=== PATIENT | female | born 1955 | race Caucasian/White ===

== ENCOUNTER 2017-06-23 19:32 | Inpatient (IN) | payer MEDICARE, BC ==
[2017-06-23] MEDS ORDERED: Sodium Chloride 0.9% 10 ML Syringe FLUSH PRN (19:39)
--- NOTE | 2017-06-23 19:51 | EDM.PDOC ---
ED HPI GENERAL MEDICAL PROBLEM - General Chief Complaint: Respiratory Problem Stated Complaint: SOB; fluid retention Time Seen by Provider: 06/23/17 19:36 Source of Information: Reports: Patient, Old Records, RN, RN Notes Reviewed History Limitations: Reports: No Limitations - History of Present Illness INITIAL COMMENTS - FREE TEXT/NARRATIVE: Patient presents to the ED at [facility] complaining of worsening SOB and fluid retention. She states her symptoms started a few days ago. She states she has chronic SOB from her weight and small body habitus. She has noticed considerable fluid retention in her lower legs and upper thighs. Patient states she was going to wait to come in and just call her PCP tomorrow, but her SOB has become much worse. She is taking her diuretics as prescribed. She states she has not been drinking more fluids than usual. She has been busy with family obligations. She has chronic pain from her weight, joints. She is on a pain contract thru [facility]. She denies any cough. No chest pain. She states her ambulation is difficult due to the fluid retention. No recent fevers or chills. She has chronic abdominal pain from a ventral hernia that she has had for many years. Onset: Gradual Duration: Chronic Location: Reports: Generalized Quality: Reports: Ache, Same as Previous Episode Severity: Moderate Improves with: Reports: Medication Worsens with: Reports: Movement Associated Symptoms: Reports: Shortness of Breath, Other (fluid retention) Abdominal Pain Score (Numeric/FACES): 7 - Related Data Allergies Allergy/AdvReac Type Severity Reaction Status Date / Time Lpuormj-Afy-Pdl Reductase AdvReac Other Verified 06/23/17 19:42 Inhibitor Home Meds: Home Meds Acetaminophen/HYDROcodone [Vista 325-10 MG] 1 - 2 tab PO Q4H PRN 11/17/15 [ History] Aspirin [Halfprin] 81 mg PO DAILY 11/17/15 [History] Calcium Carbonate/Vitamin D3 [Calcium 600 + Vit D Tablet] 1 tab PO DAILY [History] Citalopram Hydrobromide [Citalopram HBr] 20 mg PO DAILY 11/17/15 [History] Cyanocobalamin/FA/Pyridoxine [Folbic] 1 tab PO DAILY 11/17/15 [History] Cyclobenzaprine HCl 10 mg PO TID PRN 11/17/15 [History] Denosumab [Prolia] 60 mg SUBCUT Q180D 11/17/15 [History] Ferrous Sulfate 5 ml PO TID 11/17/15 [History] Fish Oil/[place]-3 Fatty Acids [Fish Oil] 360 mg PO DAILY 11/17/15 [History] Furosemide 40 mg PO DAILY 11/17/15 [History] Insulin Detemir [Levemir Flextouch] 60 unit SUBCUT DAILY 11/17/15 [History] Insulin Detemir [Levemir Flextouch] 61 unit SUBCUT BEDTIME 11/17/15 [History] Lutein/Min/Vit C/Vit E Acetate [Ocuvite Lutein] 1 tab PO DAILY 11/17/15 [History ] Metoprolol Succinate 25 mg PO DAILY 11/17/15 [History] Multivitamin with Minerals [Multiple Vitamin] 1 tab PO DAILY 11/17/15 [History] Potassium Chloride [Klor-Con Sprinkle] 10 meq PO DAILY 11/17/15 [History] Warfarin Sodium 5 mg PO DAILY 11/17/15 [History] Zolpidem Tartrate 5 mg PO BEDTIME 11/17/15 [History] metFORMIN [Glucophage] 1,000 mg PO BID 11/17/15 [History] Past Medical History Other HEENT History: OROPHARYNGEAL DYSPHAGIA Cardiovascular History: Reports: Arrhythmia, Hypertension Other Cardiovascular History: PERSISTENT ATRIAL FIB. PRISON USE OF ANTICOAGULANTS Other Gastrointestinal History: GALL STONES. BLOOD IN STOOL Genitourinary History: Reports: Renal Disease Musculoskeletal History: Reports: Neck Pain, Chronic, Osteoporosis Other Musculoskeletal History: LOCALIZED SWELLING, MASS AND LUMP, NECK. 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 Denies: Fever, Chills, Night Sweats , Diaphoresis Respiratory: Reports: Shortness of Breath. Denies: Wheezing, Cough, Sputum Cardiovascular: Reports: Dyspnea on Exertion, Edema, Orthopnea. Denies: Chest Pain, Lightheadedness, Palpitations GI/Abdominal: Reports: Abdominal Pain (chronic). Denies: Nausea, Vomiting Skin: Reports: Wound (chronic lower abdominal wound being cared for by [facility] wound clinic) Neurological: Reports: No Symptoms. Denies: Dizziness, Headache ED EXAM, GENERAL - Physical Exam Exam: See Below Exam Limited By: No Limitations General Appearance: Alert, No Apparent Distress, Obese Respiratory/Chest: No Respiratory Distress, Decreased Breath Sounds. No: Crackles, Wheezing Cardiovascular: Irregularly Irregular, Other (+3 bilateral LE edema; healing venous statis ulcer lower anterior left leg) Peripheral Pulses: 2+: Radial (L), Radial (R) GI/Abdominal: Soft, Non-Tender, Abnormal Bowel Sounds (Hypoactive), Other ( large ventral hernia appreciated) Extremities: Pedal Edema (+3 dependent pitting lower leg bilateral) Neurological: Alert, Oriented Skin Exam: Warm, Dry, Normal Color, Other (wound dressing over central lower abdomen) Course - Vital Signs Last Recorded V/S: Last Vital Signs Temp 37.7 C 06/23/17 19:36 Pulse 109 H 06/23/17 19:36 Resp 24 H 06/23/17 19:36 BP 145/82 H 06/23/17 19:36 Pulse Ox 95 06/23/17 19:36 - Orders/Labs/Meds Orders: Active Orders 24 hr Category Date Time Status Admission Status [Patient Status] [ADT] Routine ADT 06/23/17 21:04 Ordered EKG 12 Lead [EKG Documentation Completion] [RC] STAT Care 06/23/17 19:39 Active Chest 1V Frontal [CR] Stat Exams 06/23/17 19:39 Taken Sodium Chloride 0.9% [Saline Flush] Med 06/23/17 19:39 Active 10 ml FLUSH ASDIRECTED PRN Peripheral IV Insertion Adult [OM.PC] Routine Oth 06/23/17 19:39 Ordered Medication Orders Sodium Chloride (Saline Flush) 10 ml FLUSH ASDIRECTED PRN PRN Reason: Keep Vein Open Labs: Laboratory Tests 06/23/17 06/23/17 06/23/17 Range/Units 20:04 20:04 20:04 WBC 4.7 (4.0-10.0) x10^3/uL RBC 3.40 L (4.00-5.50) x10^6/uL Hgb 7.6 L* (12.0-16.0) g/dL Hct 27.1 L (33.0-47.0) % MCV 79.7 D (78.0-93.0) fL MCH 22.4 L (26.0-32.0) pg MCHC 28.0 L (32.0-36.0) g/dL RDW Coeff of Vahid 17.5 H (10.0-15.0) % Plt Count 199 (130-400) x10^3/uL Neut % (Auto) 66.4 (50.0-80.0) % Lymph % (Auto) 21.4 L (25.0-50.0) % Stokes % (Auto) 9.5 (2.0-11.0) % Eos % (Auto) 2.5 (0.0-4.0) % Baso % (Auto) 0.2 (0.2-1.2) % PT (9.6-11.4) SEC INR (2.0-3.5) D-Dimer, Quantitative (<=0.58) mg/LFEU Sodium 139 (136-145) mmol/L Potassium 4.4 (3.5-5.1) mmol/L Chloride 105 (98-107) mmol/L Carbon Dioxide 27 (21-32) mmol/L Anion Gap 11.4 (10-20) mmol/L BUN 21 H (7-18) mg/dL Creatinine 0.9 (0.55-1.02) mg/dL Est Cr Clr Drug Dosing 57.40 mL/min Estimated GFR (MDRD) > 60 Glucose 223 H (74-106) mg/dL Calcium 8.3 L (8.5-10.1) mg/dL Corrected Calcium 9.18 (8.5-10.1) mg/dL Iron 19 L (50-170) ug/dL TIBC 387 (250-450) ug/dL % Saturation 4.9 L (20.0-50.0) % Ferritin 20 (8-252) ng/mL Total Bilirubin 0.8 (0.2-1.0) mg/dL AST 26 (15-37) U/L ALT 26 (14-59) U/L Alkaline Phosphatase 108 (46-116) U/L Creatine Kinase 46 (26-192) U/L Troponin I < 0.017 (<=0.056) ng/mL NT-Pro-B Natriuret Pep 1274 H (<=125) pg/mL Total Protein 7.7 (6.4-8.2) g/dL Albumin 2.9 L (3.4-5.0) g/dL Globulin 4.8 Albumin/Globulin Ratio 0.60 /08/05 Range/Units 20:04 WBC (4.0-10.0) x10^3/uL RBC (4.00-5.50) x10^6/uL Hgb (12.0-16.0) g/dL Hct (33.0-47.0) % MCV (78.0-93.0) fL MCH (26.0-32.0) pg MCHC (32.0-36.0) g/dL RDW Coeff of Vahid (10.0-15.0) % Plt Count (130-400) x10^3/uL Neut % (Auto) (50.0-80.0) % Lymph % (Auto) (25.0-50.0) % Stokes % (Auto) (2.0-11.0) % Eos % (Auto) (0.0-4.0) % Baso % (Auto) (0.2-1.2) % PT 26.2 H (9.6-11.4) SEC INR 2.5 (2.0-3.5) D-Dimer, Quantitative 0.29 (<=0.58) mg/LFEU Sodium (136-145) mmol/L Potassium (3.5-5.1) mmol/L Chloride (98-107) mmol/L Carbon Dioxide (21-32) mmol/L Anion Gap (10-20) mmol/L BUN (7-18) mg/dL Creatinine (0.55-1.02) mg/dL Est Cr Clr Drug Dosing mL/min Estimated GFR (MDRD) Glucose (74-106) mg/dL Calcium (8.5-10.1) mg/dL Corrected Calcium (8.5-10.1) mg/dL Iron (50-170) ug/dL TIBC (250-450) ug/dL % Saturation (20.0-50.0) % Ferritin (8-252) ng/mL Total Bilirubin (0.2-1.0) mg/dL AST (15-37) U/L ALT (14-59) U/L Alkaline Phosphatase (46-116) U/L Creatine Kinase (26-192) U/L Troponin I (<=0.056) ng/mL NT-Pro-B Natriuret Pep (<=125) pg/mL Total Protein (6.4-8.2) g/dL Albumin (3.4-5.0) g/dL Globulin Albumin/Globulin Ratio Meds: Medications Generic Name Dose Route Start Last Admin Trade Name Freq PRN Reason Stop Dose Admin Sodium Chloride 10 ml 06/23/17 19:39 Saline Flush FLUSH ASDIRECTED PRN Keep Vein Open Departure - Departure Time of Disposition: 21:09 Disposition: Admitted As Inpatient 67 Condition: Good Clinical Impression: Low hemoglobin, Shortness of breath, Fluid retention in legs - Discharge Information ED Communication - ED Communication Date/Time Date: 06/23/17 Time Called: 20:55 - Discussed Case With (1) Discussed Case With (1): Admitting Provider (Dr. Quinn Somers) - Conversation Summary Admitting Provider Agreed to Patient's Admission: Yes Patient Aware of Amendments fo Care Plan: Yes - Problem List Review Problem List Initiated/Reviewed/Updated: Yes - My Orders Last 24 Hours: My Active Orders 06/23/17 19:39 EKG 12 Lead [EKG Documentation Completion] [RC] STAT Chest 1V Frontal [CR] Stat Sodium Chloride 0.9% [Saline Flush] 10 ml FLUSH ASDIRECTED PRN Peripheral IV Insertion Adult [OM.PC] Routine 06/23/17 21:04 Admission Status [Patient Status] [ADT] Routine - Assessment/Plan Last 24 Hours: My Active Orders 06/23/17 19:39 EKG 12 Lead [EKG Documentation Completion] [RC] STAT Chest 1V Frontal [CR] Stat Sodium Chloride 0.9% [Saline Flush] 10 ml FLUSH ASDIRECTED PRN Peripheral IV Insertion Adult [OM.PC] Routine 06/23/17 21:04 Admission Status [Patient Status] [ADT] Routine Plan: Case discussed with Dr. Somers. Patient will be admitted acute for iron infusion and diuresis. Patient aware and agrees with admission.
[2017-06-23 20:38] LABS: CHLORIDE,CL 105 mmol/L (98-107); SODIUM,NA 139 mmol/L (136-145)
[2017-06-23] MEDS: Furosemide 20 MG/2 ML VIAL IV SCH (23:38)
--- NOTE | 2017-06-23 23:47 | PCM.HP ---
H&P History of Present Illness - General Date of Service: 06/23/17 Admit Problem/Dx: Admission Diagnosis/Problem Admission Diagnosis/Problem Shortness of breath Source of Information: Patient - History of Present Illness Initial Comments - Free Text/Narative: Chief Complaint: shortness of breath Patient has been having gradual increasing shortness of breath over the last 2 months. She is okay at rest but with any movement she is dyspneic she states that this is a problem whenever her hemoglobin gets low she also has a history of congestive heart failure. Her weight has gone up 20-30 pounds over the last month or so. Patient has had no chest pain, chest pressure, fast heartbeat. She also has a history of sleep apnea but does not use her CPAP consistently. Patient is morbidly obese. She has a history of iron deficiency anemia. 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 Patient last saw Dr. Parish in April and at that point her hemoglobin was 10.4. Patient does not take her iron 3 times a day daily as prescribed but twice a day every other day. Patient states she's had a colonoscopy and EGD which were both negative within the last year patient Abdominal Pain Score (Numeric/FACES): 7 - Related Data Allergies/Adverse Reactions: Allergies Allergy/AdvReac Type Severity Reaction Status Date / Time [id number] Reductase AdvReac Other Verified 06/23/17 19:42 Inhibitor Home Medications: Home Meds Acetaminophen/HYDROcodone [Delta 325-10 MG] 1 - 2 tab PO Q4H PRN 11/17/15 [ History] Aspirin [Halfprin] 81 mg PO DAILY 11/17/15 [History] Calcium Carbonate/Vitamin D3 [Calcium 600 + Vit D Tablet] 1 tab PO DAILY [History] Citalopram Hydrobromide [Citalopram HBr] 20 mg PO DAILY 11/17/15 [History] Cyanocobalamin/FA/Pyridoxine [Folbic] 1 tab PO DAILY 11/17/15 [History] Cyclobenzaprine HCl 10 mg PO TID PRN 11/17/15 [History] Denosumab [Prolia] 60 mg SUBCUT Q180D 11/17/15 [History] Ferrous Sulfate 5 ml PO TID 11/17/15 [History] Fish Oil/[place]-3 Fatty Acids [Fish Oil] 360 mg PO DAILY 11/17/15 [History] Furosemide 40 mg PO DAILY 11/17/15 [History] Insulin Detemir [Levemir Flextouch] 60 unit SUBCUT DAILY 11/17/15 [History] Insulin Detemir [Levemir Flextouch] 61 unit SUBCUT BEDTIME 11/17/15 [History] Lutein/Min/Vit C/Vit E Acetate [Ocuvite Lutein] 1 tab PO DAILY 11/17/15 [History ] Metoprolol Succinate 25 mg PO DAILY 11/17/15 [History] Multivitamin with Minerals [Multiple Vitamin] 1 tab PO DAILY 11/17/15 [History] Potassium Chloride [Klor-Con Sprinkle] 10 meq PO DAILY 11/17/15 [History] Warfarin Sodium 5 mg PO DAILY 11/17/15 [History] Zolpidem Tartrate 5 mg PO BEDTIME 11/17/15 [History] metFORMIN [Glucophage] 1,000 mg PO BID 11/17/15 [History] Ferrous Sulfate 5 ml PO TID 06/23/17 [History] Warfarin [Coumadin] 1 mg PO DAILY 06/23/17 [History] Past Medical History HEENT History: Reports: Other (See Below) (Patient states she has had a video swallow test which was negative she continues to have problems side of her) Other HEENT History: OROPHARYNGEAL DYSPHAGIA Cardiovascular History: Reports: Arrhythmia, Hypertension Other Cardiovascular History: PERSISTENT ATRIAL FIB. LONG-TERM USE OF ANTICOAGULANTS Respiratory History: Reports: Sleep Apnea, SOB Other Respiratory History: using CPAP at home Other Gastrointestinal History: GALL STONES Genitourinary History: Reports: Renal Disease Musculoskeletal History: Reports: Neck Pain, Chronic, Osteoporosis Other Musculoskeletal History: LOCALIZED SWELLING, MASS AND LUMP, NECK. DISORDER OF ROTATOR CUFF. Back pain for which she uses 4-6 pills of her hydrocodone\ acetaminophen daily and she is in a pain contract with her PCP Other Neuro History: CHRONIC PAIN SYNDROME Psychiatric History: Reports: Depression Other Psychiatric History: INSOMNIA Endocrine/Metabolic History: Reports: Diabetes, Type II Hematologic History: Reports: Anemia, Iron Deficiency Other Dermatologic History: OPEN SORE WHERE UMBILLICUS USED TO BE - Past Surgical History Cardiovascular Surgical History: Reports: None GI Surgical History: Reports: Appendectomy, Colonoscopy, EGD, Hernia, Abdominal , Hernia Repair/Other, Other (See Below) (Failed hernia repair with infected mesh removed 2006) Other GI Surgeries/Procedures: GASTRIC BYPASS Musculoskeletal Surgical History: Reports: None Social & Family History - Family History Other GI Family History: FAM HX COLON CANCER - Tobacco Use Smoking Status *Q: Never Smoker Used Tobacco, but Quit: No Tobacco Use Comment: never been a smoker Second Hand Smoke Exposure: No - Caffeine Use Caffeine Use: Reports: Coffee - Alcohol Use Alcohol Use History: No - Recreational Drug Use Recreational Drug Use: No - Living Situation & Occupation Occupation: Disabled (Former health aide, lives with , 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 One daughter is in [place] She has an adopted son) H&P Review of Systems - Review of Systems: Review Of Systems: See Below General: Reports: Fatigue, Weight Gain HEENT: Reports: Other (Feeling of pain and difficulty swallowing on the left neck) Pulmonary: Reports: Shortness of Breath Cardiovascular: Reports: Edema Gastrointestinal: Reports: No Symptoms Genitourinary: Reports: No Symptoms Musculoskeletal: Reports: Back Pain, Other (Back pain gets worse because of the weight of her abdominal pannus, also has periodic pain in her rib cage) Skin: Reports: Other (Chronic erythema in her lower legs) Psychiatric: Reports: Other (Under a lot of stress) Neurological: Reports: No Symptoms Exam - Exam Exam: See Below - Vital Signs Vital Signs: Last Vital Signs Temp 98 F 06/23/17 23:14 Pulse 108 H 06/23/17 23:14 Resp 18 06/23/17 23:14 BP 123/61 06/23/17 23:14 Pulse Ox 94 L 06/23/17 23:14 Weight: 343 lb - Exam General: Alert, Oriented, Other (Dyspneic at rest and activity) HEENT: Conjunctiva Clear, Hearing Intact Neck: Supple, +2 Carotid Pulse wo Bruit Lungs: Clear to Auscultation Cardiovascular: Normal S1, Normal S2, Irregular Rhythm GI/Abdominal Exam: Normal Bowel Sounds, Other (Large abdominal pannus., Hold dressing covers from wound was not taken down as we don't have any suitable dressing. Hospital) Back Exam: Normal Inspection Extremities: Redness, Other (Patient has 3+ bilateral edema, erythema which patient says is chronic, healing superficial scrape on the right anterior tibial surface) Neuro Extensive - Mental Status: Alert, Oriented x3, Normal Mood/Affect, Normal Cognition, Memory Intact Neuro Extensive - Motor, Sensory, Reflexes: CN II-XII Intact, Normal Gait Psychiatric: Alert, Normal Affect, Normal Mood - Patient Data Lab Results Last 24 hrs: Laboratory Results - last 24 hr 06/23/17 06/23/17 06/23/17 Range/Units 20:04 20:04 20:04 WBC 4.7 (4.0-10.0) x10^3/uL RBC 3.40 L (4.00-5.50) x10^6/uL Hgb 7.6 L* (12.0-16.0) g/dL Hct 27.1 L (33.0-47.0) % MCV 79.7 D (78.0-93.0) fL MCH 22.4 L (26.0-32.0) pg MCHC 28.0 L (32.0-36.0) g/dL RDW Coeff of Vahid 17.5 H (10.0-15.0) % Plt Count 199 (130-400) x10^3/uL Neut % (Auto) 66.4 (50.0-80.0) % Lymph % (Auto) 21.4 L (25.0-50.0) % [place] % (Auto) 9.5 (2.0-11.0) % Eos % (Auto) 2.5 (0.0-4.0) % Baso % (Auto) 0.2 (0.2-1.2) % PT (9.6-11.4) SEC INR (2.0-3.5) D-Dimer, Quantitative (<=0.58) mg/LFEU Sodium 139 (136-145) mmol/L Potassium 4.4 (3.5-5.1) mmol/L Chloride 105 (98-107) mmol/L Carbon Dioxide 27 (21-32) mmol/L Anion Gap 11.4 (10-20) mmol/L BUN 21 H (7-18) mg/dL Creatinine 0.9 (0.55-1.02) mg/dL Est Cr Clr Drug Dosing 57.40 mL/min Estimated GFR (MDRD) > 60 Glucose 223 H (74-106) mg/dL POC Glucose (74-106) mg/dL Calcium 8.3 L (8.5-10.1) mg/dL Corrected Calcium 9.18 (8.5-10.1) mg/dL Iron 19 L (50-170) ug/dL TIBC 387 (250-450) ug/dL % Saturation 4.9 L (20.0-50.0) % Ferritin 20 (8-252) ng/mL Total Bilirubin 0.8 (0.2-1.0) mg/dL AST 26 (15-37) U/L ALT 26 (14-59) U/L Alkaline Phosphatase 108 (46-116) U/L Creatine Kinase 46 (26-192) U/L Troponin I < 0.017 (<=0.056) ng/mL NT-Pro-B Natriuret Pep 1274 H (<=125) pg/mL Total Protein 7.7 (6.4-8.2) g/dL Albumin 2.9 L (3.4-5.0) g/dL Globulin 4.8 Albumin/Globulin Ratio 0.60 06/23/17 06/23/17 Range/Units 20:04 22:13 WBC (4.0-10.0) x10^3/uL RBC (4.00-5.50) x10^6/uL Hgb (12.0-16.0) g/dL Hct (33.0-47.0) % MCV (78.0-93.0) fL MCH (26.0-32.0) pg MCHC (32.0-36.0) g/dL RDW Coeff of Vahid (10.0-15.0) % Plt Count (130-400) x10^3/uL Neut % (Auto) (50.0-80.0) % Lymph % (Auto) (25.0-50.0) % [place] % (Auto) (2.0-11.0) % Eos % (Auto) (0.0-4.0) % Baso % (Auto) (0.2-1.2) % PT 26.2 H (9.6-11.4) SEC INR 2.5 (2.0-3.5) D-Dimer, Quantitative 0.29 (<=0.58) mg/LFEU Sodium (136-145) mmol/L Potassium (3.5-5.1) mmol/L Chloride (98-107) mmol/L Carbon Dioxide (21-32) mmol/L Anion Gap (10-20) mmol/L BUN (7-18) mg/dL Creatinine (0.55-1.02) mg/dL Est Cr Clr Drug Dosing mL/min Estimated GFR (MDRD) Glucose (74-106) mg/dL POC Glucose 149 H (74-106) mg/dL Calcium (8.5-10.1) mg/dL Corrected Calcium (8.5-10.1) mg/dL Iron (50-170) ug/dL TIBC (250-450) ug/dL % Saturation (20.0-50.0) % Ferritin (8-252) ng/mL Total Bilirubin (0.2-1.0) mg/dL AST (15-37) U/L ALT (14-59) U/L Alkaline Phosphatase (46-116) U/L Creatine Kinase (26-192) U/L Troponin I (<=0.056) ng/mL NT-Pro-B Natriuret Pep (<=125) pg/mL Total Protein (6.4-8.2) g/dL Albumin (3.4-5.0) g/dL Globulin Albumin/Globulin Ratio Result Diagrams: 06/23/17 20:04 06/23/17 20:04 EKG INTERPRETATION Rhythm: A-Fib [place]: Normal (Atrial fibrillation heart rate [address] sagging and T- wave inversion 1, 2, 3,v4, 5, 6) - Problem List (1) Fluid retention in legs SNOMED Code(s): 521950565 ICD Code: R60.0 - LOCALIZED EDEMA Status: Acute Priority: High Current Visit: Yes (2) Low hemoglobin SNOMED Code(s): 317697207 ICD Code: D64.9 - ANEMIA, UNSPECIFIED Status: Acute Current Visit: Yes (3) Anemia in CKD (chronic kidney disease) SNOMED Code(s): 648113513 ICD Code: N18.9 - CHRONIC KIDNEY DISEASE, UNSPECIFIED; D63.1 - ANEMIA IN CHRONIC KIDNEY DISEASE Status: Chronic Current Visit: No Problem List Initiated/Reviewed/Updated: Yes Orders Last 24hrs: Active Orders 24 hr Category Date Time Status Admission Status [Patient Status] [ADT] Routine ADT 06/23/17 21:04 Active Patient Status [ADT] Routine ADT 06/23/17 23:14 Ordered Activity as Tolerated [RC] .Routine Care 06/23/17 23:20 Ordered Blood Glucose Check, Bedside [RC] QIDACANDBED Care 06/23/17 23:14 Ordered EKG 12 Lead [EKG Documentation Completion] [RC] STAT Care 06/23/17 19:39 Active Overnight Pulse Oximetry [RC] Click to Edit Care 06/23/17 23:37 Ordered Oxygen Therapy Adult [Oxygen Therapy, ED] [RC] Care 06/23/17 23:21 Ordered ASDIRECTED Oxygen Therapy [RC] PRN Care 06/23/17 23:14 Ordered VTE/DVT Education [RC] PER UNIT ROUTINE Care 06/23/17 23:14 Ordered Vital Signs [RC] Q4H Care 06/23/17 23:14 Ordered [place] [employer] Diet [DIET] Diet 06/24/17 Breakfast Ordered Chest 1V Frontal [CR] Stat Exams 06/23/17 19:39 Taken BASIC METABOLIC PANEL,BMP [CHEM] AM Lab 06/24/17 05:11 Ordered CBC WITH AUTO DIFF [HEME] AM Lab 06/24/17 05:11 Ordered Acetaminophen/HYDROcodone [Delta 325-10 MG] Med 06/23/17 23:23 Ordered 1 - 2 tab PO Q4H PRN Aspirin [Halfprin] Med 06/24/17 08:00 Ordered 81 mg PO DAILY Calcium Carbonate/Vitamin D3 [Calcium 600 + Vit D Med 06/24/17 08:00 Ordered Tablet] 1 tab PO DAILY Citalopram Hydrobromide [Citalopram HBr] Med 06/24/17 08:00 Ordered 20 mg PO DAILY Cyanocobalamin/FA/Pyridoxine [Folbic] Med 06/24/17 08:00 Ordered 1 tab PO DAILY Ferrous Sulfate [Ferrous Sulfate] Med 06/24/17 08:00 Ordered 5 ml PO TID Fish Oil/[place]-3 Fatty Acids [Fish Oil] Med 06/24/17 08:00 Ordered 0.36 gm PO DAILY Furosemide [Lasix] Med 06/23/17 23:23 Ordered 20 mg IV BIDDIURETIC Insulin Detemir [Levemir] Med 06/24/17 08:00 Ordered 60 unit SUBCUT DAILY Insulin Detemir [Levemir] Med 06/24/17 20:00 Ordered 61 unit SUBCUT BEDTIME Lutein/Min/Vit C/Vit E Acetate [Ocuvite Lutein] Med 06/24/17 08:00 Ordered 1 tab PO DAILY Metoprolol Succinate [Toprol XL] Med 06/24/17 08:00 Ordered 25 mg PO DAILY Multivitamin with Minerals [Multiple Vitamin] Med 06/24/17 08:00 Ordered 1 tab PO DAILY Potassium Chloride [Klor-Con Sprinkle] Med 06/24/17 08:00 Ordered 10 meq PO DAILY Sodium Chloride 0.9% [Saline Flush] Med 06/23/17 19:39 Active 10 ml FLUSH ASDIRECTED PRN Warfarin Med 06/24/17 08:00 Ordered 1 mg PO DAILY Warfarin [Coumadin] Med 06/24/17 08:00 Ordered 5 mg PO DAILY Zolpidem [Ambien] Med 06/24/17 20:00 Ordered 5 mg PO BEDTIME metFORMIN [Glucophage] Med 06/24/17 08:00 Ordered 1,000 mg PO BID Assertion Communication Order [AST] Click To Edit Oth 06/23/17 23:19 Ordered Peripheral IV Insertion Adult [OM.PC] Routine Oth 06/23/17 19:39 Ordered Pulse Oximetry Continuous Monitoring [OM.PC] Routine Oth 06/23/17 23:37 Ordered Resuscitation Status Routine Resus Stat 06/23/17 23:14 Ordered Medication Orders Hydrocodone Bitart/Acetaminophen (Delta 325-10 Mg) 1 - 2 tab PO Q4H PRN PRN Reason: Pain Aspirin (Halfprin) 81 mg PO DAILY [facility] Fish Oil (Fish Oil) 0.36 gm PO DAILY [facility] Furosemide (Lasix) 20 mg IV BIDDIURETIC AMEE Last Admin: 06/23/17 23:38 Dose: 20 mg Insulin Detemir (Levemir) 60 unit SUBCUT DAILY [facility] Insulin Detemir (Levemir) 61 unit SUBCUT BEDTIME [facility] Metoprolol Succinate (Toprol Xl) 25 mg PO DAILY [facility] Non-Formulary Medication (Calcium Carbonate/Vitamin D3 [Calcium 600 + Vit D Tablet]) 1 tab PO DAILY [facility] Non-Formulary Medication (Citalopram Hydrobromide [Citalopram Hbr]) 20 mg PO DAILY [facility] Non-Formulary Medication (Cyanocobalamin/Fa/Pyridoxine [Folbic]) 1 tab PO DAILY [facility] Non-Formulary Medication (Ferrous Sulfate [Ferrous Sulfate]) 5 ml PO TID [facility] Non-Formulary Medication (Lutein/Min/Vit C/Vit E Acetate [Ocuvite Lutein]) 1 tab PO DAILY [facility] Non-Formulary Medication (Metformin [Glucophage]) 1,000 mg PO BID [facility] Non-Formulary Medication (Multivitamin With Minerals [Multiple Vitamin]) 1 tab PO DAILY [facility] Non-Formulary Medication (Potassium Chloride [Klor-Con Sprinkle]) 10 meq PO DAILY [facility] Non-Formulary Medication (Warfarin) 1 mg PO DAILY [facility] Sodium Chloride (Saline Flush) 10 ml FLUSH ASDIRECTED PRN PRN Reason: Keep Vein Open Last Admin: 06/23/17 23:38 Dose: 10 ml Warfarin Sodium (Coumadin) 5 mg PO DAILY [facility] Zolpidem Tartrate (Ambien) 5 mg PO BEDTIME [facility] Assessment/Plan Comment:: 1. Shortness of breath and leg edema: Chest x-ray shows some mild heart failure. , Start IV Lasix and ordered an echocardiogram. Place patient on the monitor as uncontrolled atrial fibrillation may attribute CHF. It is of concern that patient probably has untreated sleep apnea if she is not compliant with her CPAP mask and this may contribute right-sided heart failure. Leg edema may partially be due to decreased venous return because her abdominal girth and may not be responsive to diuretics 2. Anemia. Check stool for blood, restart iron. Patient has been advised to take it as prescribed. Dr. Lord may want patient to get IV iron in the morning . 3. Diabetes mellitus: We'll continue with outpatient medications and check blood sugars before meals and at bedtime 4. Question of kidney disease: Her renal function appears normal today 5. Chronic back pain: Continue with pain medications as per PCP 6. Morbid obesity 7. Nonhealing ventral hernia: I've asked the patient to have her family bring in the special dressings 8. Sleep apnea.: I've asked patient to bring her CPAP mask from home she declines to have a CPAP mask from the hospital as she says it will make her feel claustrophobic . 9. Atrial fibrillation: Continue anticoagulation
[2017-06-24] MEDS: Zolpidem 5 MG Tab PO SCH (00:49)
[2017-06-24] MEDS ORDERED: Digoxin 500 MCG/2 ML Amp IVPUSH ONE (01:35)
[2017-06-24] MEDS: Acetaminophen/HYDROcodone 325-10 MG Tab PO PRN ×2 (02:11→10:49)
[2017-06-24 07:26] LABS: CHLORIDE,CL 105 mmol/L (98-107); SODIUM,NA 139 mmol/L (136-145)
[2017-06-24] MEDS ORDERED: Digoxin 250 MCG Tab PO SCH (08:00)
[2017-06-24] MEDS ORDERED: Non-Formulary Medication 1 Each (Warfarin 1 MG) PO SCH (08:00)
[2017-06-24] MEDS ORDERED: metFORMIN 500 MG Tab PO SCH (08:00)
[2017-06-24] MEDS ORDERED: Warfarin 5 MG Tab PO SCH (08:00)
[2017-06-24] MEDS: Calcium Carbonate/Vitamin D3 1250 MG-200 Unit Tab PO SCH (08:11)
[2017-06-24] MEDS: Beta-Carotene (Vitamin A) w/Vitamin C & E plus Minerals Tab PO SCH (08:11)
[2017-06-24] MEDS: Aspirin 81 MG Tab.EC PO SCH (08:11)
[2017-06-24] MEDS: Metoprolol Succinate 25 MG Tab.ER PO SCH (08:11)
[2017-06-24] MEDS: Multivitamins with Iron/Calcium/Folic Acid/Minerals Tab PO SCH (08:11)
[2017-06-24] MEDS: Potassium Chloride 10 MEQ Tab.ER PO SCH (08:12)
[2017-06-24] MEDS: Citalopram 20 MG Tab PO SCH (08:12)
[2017-06-24] MEDS: Furosemide 20 MG/2 ML VIAL IV SCH (08:13)
[2017-06-24] MEDS: Insulin Detemir 100 Units/ML 3 ML Pen SUBCUT SCH (08:26)
[2017-06-24] MEDS: Fish Oil/Omega-3 Fatty Acids 1 Gm Cap PO SCH (11:33)
[2017-06-24] MEDS: Ferrous Sulfate Liq 300 MG/5 ML Cup PO SCH (11:34)
[2017-06-24] MEDS: CYANOCOBALAMIN PO SCH (11:35)
[2017-06-24] MEDS: PYRIDOXINE PO SCH (11:35)
[2017-06-24] MEDS: [UNRECOGNIZED DRUG - OTHER] PO SCH (11:35)
--- NOTE | 2017-06-24 11:48 | PCM.PN ---
- General Info Date of Service: 06/24/17 Subjective Update: Mrs. Hammond is a 61 yo female admitted with acute on chronic anemia as well as CHF exacerbation after presenting with progressively worsening dyspnea on exertion over the preceding 3-4 days. She feels about the same this morning. She describes her legs feeling weak as well as having the shortness of breath. She is barely able to get to the bathroom and back to her bed without needing to rest. She denies any chest pain. She has had some leg swelling and weight gain recently as well. No cough, fever, or chills. No black or bloody stools. Symptoms have been similar to that which she has had previously with her anemia. Last time her Hgb was as low as it is now is when she was in the hospital in early 2017 at which point she did have an EGD which was negative. She is s/p gastric bypass and has been taking her iron only every other day. - Review of Systems General: Reports: No Symptoms HEENT: Reports: No Symptoms Pulmonary: Reports: Shortness of Breath Cardiovascular: Reports: No Symptoms Gastrointestinal: Reports: No Symptoms Genitourinary: Reports: No Symptoms Musculoskeletal: Reports: No Symptoms Skin: Reports: No Symptoms - Patient Data Vitals - Most Recent: Last Vital Signs Temp 36.5 C 06/24/17 10:00 Pulse 102 H 06/24/17 10:00 Resp 16 06/24/17 10:00 BP 110/66 06/24/17 10:00 Pulse Ox 97 06/24/17 10:00 Weight - Most Recent: 163.293 kg I&O - Last 24 Hours: Intake & Output 06/23/17 06/24/17 06/24/17 22:59 06:59 14:59 Intake Total 900 420 Output Total 350 Balance 550 420 Lab Results Last 24 Hours: Laboratory Results - last 24 hr 06/23/17 06/23/17 06/23/17 Range/Units 20:04 20:04 20:04 WBC 4.7 (4.0-10.0) x10^3/uL RBC 3.40 L (4.00-5.50) x10^6/uL Hgb 7.6 L* (12.0-16.0) g/dL Hct 27.1 L (33.0-47.0) % MCV 79.7 D (78.0-93.0) fL MCH 22.4 L (26.0-32.0) pg MCHC 28.0 L (32.0-36.0) g/dL RDW Coeff of Vahid 17.5 H (10.0-15.0) % Plt Count 199 (130-400) x10^3/uL Neut % (Auto) 66.4 (50.0-80.0) % Lymph % (Auto) 21.4 L (25.0-50.0) % Edgar % (Auto) 9.5 (2.0-11.0) % Eos % (Auto) 2.5 (0.0-4.0) % Baso % (Auto) 0.2 (0.2-1.2) % Add Manual Diff Neutrophils % (Manual) (50-80) % Band Neutrophils % (0-6) % Lymphocytes % (Manual) (25-50) % Monocytes % (Manual) (2-11) % Eosinophils % (Manual) (0-4) % Platelet Estimate Hypochromasia Anisocytosis Microcytosis Rouleaux PT (9.6-11.4) SEC INR (2.0-3.5) D-Dimer, Quantitative (<=0.58) mg/LFEU Sodium 139 (136-145) mmol/L Potassium 4.4 (3.5-5.1) mmol/L Chloride 105 (98-107) mmol/L Carbon Dioxide 27 (21-32) mmol/L Anion Gap 11.4 (10-20) mmol/L BUN 21 H (7-18) mg/dL Creatinine 0.9 (0.55-1.02) mg/dL Est Cr Clr Drug Dosing 57.40 mL/min Estimated GFR (MDRD) > 60 Glucose 223 H (74-106) mg/dL POC Glucose (74-106) mg/dL Calcium 8.3 L (8.5-10.1) mg/dL Corrected Calcium 9.18 (8.5-10.1) mg/dL Iron 19 L (50-170) ug/dL TIBC 387 (250-450) ug/dL % Saturation 4.9 L (20.0-50.0) % Ferritin 20 (8-252) ng/mL Total Bilirubin 0.8 (0.2-1.0) mg/dL AST 26 (15-37) U/L ALT 26 (14-59) U/L Alkaline Phosphatase 108 (46-116) U/L Creatine Kinase 46 (26-192) U/L Troponin I < 0.017 (<=0.056) ng/mL NT-Pro-B Natriuret Pep 1274 H (<=125) pg/mL Total Protein 7.7 (6.4-8.2) g/dL Albumin 2.9 L (3.4-5.0) g/dL Globulin 4.8 Albumin/Globulin Ratio 0.60 Digoxin (0.90-2.00) ng/mL 06/23/17 06/23/17 06/24/17 Range/Units 20:04 22:13 06:09 WBC 5.4 (4.0-10.0) x10^3/uL RBC 3.40 L (4.00-5.50) x10^6/uL Hgb 7.7 L* (12.0-16.0) g/dL Hct 26.9 L (33.0-47.0) % MCV 79.1 (78.0-93.0) fL MCH 22.6 L (26.0-32.0) pg MCHC 28.6 L (32.0-36.0) g/dL RDW Coeff of Vahid 17.2 H (10.0-15.0) % Plt Count 224 (130-400) x10^3/uL Neut % (Auto) (50.0-80.0) % Lymph % (Auto) (25.0-50.0) % Edgar % (Auto) (2.0-11.0) % Eos % (Auto) (0.0-4.0) % Baso % (Auto) (0.2-1.2) % Add Manual Diff Yes Neutrophils % (Manual) 51 (50-80) % Band Neutrophils % 4 (0-6) % Lymphocytes % (Manual) 33 (25-50) % Monocytes % (Manual) 9 (2-11) % Eosinophils % (Manual) 3 (0-4) % Platelet Estimate Adequate Hypochromasia 2+ moderate H Anisocytosis 2+ moderate H Microcytosis 2+ moderate H Rouleaux 1+ slight H PT 26.2 H (9.6-11.4) SEC INR 2.5 (2.0-3.5) D-Dimer, Quantitative 0.29 (<=0.58) mg/LFEU Sodium (136-145) mmol/L Potassium (3.5-5.1) mmol/L Chloride (98-107) mmol/L Carbon Dioxide (21-32) mmol/L Anion Gap (10-20) mmol/L BUN (7-18) mg/dL Creatinine (0.55-1.02) mg/dL Est Cr Clr Drug Dosing mL/min Estimated GFR (MDRD) Glucose (74-106) mg/dL POC Glucose 149 H (74-106) mg/dL Calcium (8.5-10.1) mg/dL Corrected Calcium (8.5-10.1) mg/dL Iron (50-170) ug/dL TIBC (250-450) ug/dL % Saturation (20.0-50.0) % Ferritin (8-252) ng/mL Total Bilirubin (0.2-1.0) mg/dL AST (15-37) U/L ALT (14-59) U/L Alkaline Phosphatase (46-116) U/L Creatine Kinase (26-192) U/L Troponin I (<=0.056) ng/mL NT-Pro-B Natriuret Pep (<=125) pg/mL Total Protein (6.4-8.2) g/dL Albumin (3.4-5.0) g/dL Globulin Albumin/Globulin Ratio Digoxin (0.90-2.00) ng/mL 06/24/17 06/24/17 06/24/17 Range/Units 06:09 06:09 11:32 WBC (4.0-10.0) x10^3/uL RBC (4.00-5.50) x10^6/uL Hgb (12.0-16.0) g/dL Hct (33.0-47.0) % MCV (78.0-93.0) fL MCH (26.0-32.0) pg MCHC (32.0-36.0) g/dL RDW Coeff of Vahid (10.0-15.0) % Plt Count (130-400) x10^3/uL Neut % (Auto) (50.0-80.0) % Lymph % (Auto) (25.0-50.0) % Edgar % (Auto) (2.0-11.0) % Eos % (Auto) (0.0-4.0) % Baso % (Auto) (0.2-1.2) % Add Manual Diff Neutrophils % (Manual) (50-80) % Band Neutrophils % (0-6) % Lymphocytes % (Manual) (25-50) % Monocytes % (Manual) (2-11) % Eosinophils % (Manual) (0-4) % Platelet Estimate Hypochromasia Anisocytosis Microcytosis Rouleaux PT (9.6-11.4) SEC INR (2.0-3.5) D-Dimer, Quantitative (<=0.58) mg/LFEU Sodium 139 (136-145) mmol/L Potassium 4.2 (3.5-5.1) mmol/L Chloride 105 (98-107) mmol/L Carbon Dioxide 28 (21-32) mmol/L Anion Gap 10.2 (10-20) mmol/L BUN 20 H (7-18) mg/dL Creatinine 0.7 (0.55-1.02) mg/dL Est Cr Clr Drug Dosing 73.80 mL/min Estimated GFR (MDRD) > 60 Glucose 144 H (74-106) mg/dL POC Glucose 141 H (74-106) mg/dL Calcium 8.2 L (8.5-10.1) mg/dL Corrected Calcium (8.5-10.1) mg/dL Iron (50-170) ug/dL TIBC (250-450) ug/dL % Saturation (20.0-50.0) % Ferritin (8-252) ng/mL Total Bilirubin (0.2-1.0) mg/dL AST (15-37) U/L ALT (14-59) U/L Alkaline Phosphatase (46-116) U/L Creatine Kinase (26-192) U/L Troponin I (<=0.056) ng/mL NT-Pro-B Natriuret Pep (<=125) pg/mL Total Protein (6.4-8.2) g/dL Albumin (3.4-5.0) g/dL Globulin Albumin/Globulin Ratio Digoxin < 0.20 L (0.90-2.00) ng/mL Med Orders - Current: Current Medications Hydrocodone Bitart/Acetaminophen ([place] 325-10 Mg) 1 - 2 tab PO Q4H PRN PRN Reason: Pain Last Admin: 06/24/17 10:49 Dose: 1 tab Aspirin (Halfprin) 81 mg PO DAILY [facility] Last Admin: 06/24/17 08:11 Dose: 81 mg Calcium Carbonate (Calcium Carbonate/Vitamin D 1250 Mg-200 Unit) 1 tab PO DAILY [facility] Last Admin: 06/24/17 08:11 Dose: 1 tab Citalopram Hydrobromide (Celexa) 20 mg PO DAILY [facility] Last Admin: 06/24/17 08:12 Dose: 20 mg Ferrous Sulfate (Ferrous Sulfate) 5 mg PO TID [facility] Last Admin: 06/24/17 11:34 Dose: 5 mg Fish Oil (Fish Oil) 1 gm PO DAILY [facility] Last Admin: 06/24/17 11:33 Dose: 1 gm Furosemide (Lasix) 20 mg IV BIDDIURETIC [facility] Last Admin: 06/24/17 08:13 Dose: 20 mg Insulin Aspart (Novolog) 0 unit SUBCUT TIDMEALS [facility]; Protocol Insulin Detemir (Levemir) 60 unit SUBCUT DAILY [facility] Last Admin: 06/24/17 08:26 Dose: 60 units Insulin Detemir (Levemir) 61 unit SUBCUT BEDTIME [facility] Metoprolol Succinate (Toprol Xl) 25 mg PO DAILY [facility] Last Admin: 06/24/17 08:11 Dose: 25 mg Multivitamins/Minerals (Prosight) 1 tab PO DAILY [facility] Last Admin: 06/24/17 08:11 Dose: 1 tab Multivitamins/Minerals (Thera M Plus) 1 tab PO DAILY [facility] Last Admin: 06/24/17 08:11 Dose: 1 tab Cyanocobalamin/Fa/Pyridoxine [Folbic] (Own Supply) 1 tab PO DAILY [facility] Last Admin: 06/24/17 11:35 Dose: Not Given Potassium Chloride (Klor-Con 10) 10 meq PO DAILY [facility] Last Admin: 06/24/17 08:12 Dose: 10 meq Sodium Chloride (Saline Flush) 10 ml FLUSH ASDIRECTED PRN PRN Reason: Keep Vein Open Last Admin: 06/23/17 23:38 Dose: 10 ml Warfarin Sodium (Coumadin) 6 mg PO DAILY@1999 [facility] Zolpidem Tartrate (Ambien) 5 mg PO BEDTIME [facility] Last Admin: 06/24/17 00:49 Dose: 5 mg Discontinued Medications Digoxin (Lanoxin) 250 mcg IVPUSH STAT ONE Stop: 06/24/17 01:36 Last Admin: 06/24/17 08:10 Dose: Not Given Digoxin (Lanoxin) 250 mcg PO DAILY [facility] Metformin HCl (Glucophage) 1,000 mg PO BIDMEALS [facility] Last Admin: 06/24/17 08:13 Dose: 1,000 mg Non-Formulary Medication (Warfarin) 1 mg PO DAILY [facility] Warfarin Sodium (Coumadin) 5 mg PO DAILY [facility] Zolpidem Tartrate (Ambien) 5 mg PO BEDTIME [facility] - Exam General: Alert, Oriented, Cooperative, No Acute Distress HEENT: Mucous Membr. Moist/[place] Neck: Supple, Trachea Midline, No Thyromegaly. No: Lymphadenopathy Lungs: Crackles (at the bases bilaterally) Cardiovascular: Regular Rate, No Murmurs, Irregular Rhythm GI/Abdominal Exam: Normal Bowel Sounds, Soft, Non-Tender, No Distention Extremities: Normal Inspection, Pedal Edema (2+ to the knees bilaterally; nikita erythema on both shins unchanged from chronic appearance) Peripheral Pulses: 2+: Radial (L), Radial (R) Skin: Warm, Dry, Intact - Problem List & Annotations (1) Anemia SNOMED Code(s): 943451978 Code(s): D64.9 - ANEMIA, UNSPECIFIED Status: Acute Current Visit: Yes Qualifiers: Anemia type: iron deficiency Iron deficiency anemia type: inadequate dietary iron intake Qualified Code(s): D50.8 - Other iron deficiency anemias Annotation/Comment:: - Patient has had trouble keeping up with iron intake in the setting of previous gastric bypass. Has previously been cleared with EGD and colonoscopy for any GI blood loss. Has also had negative stool testing for occult blood as recently as 6 months ago. 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 Heart failure is likely secondary, at least in part, to this. - Discussed that transfusion should be considered in the setting of Hgb <8 associated with symptoms that are limiting her activity quite significantly. - Reviewed the risks (infection, fluid overload, allergic reaction which can be fatal), benefits (improved symptoms, reduced cardiac stress), and alternatives ( continuing iron alone with consideration for IV iron which would not improve her symptoms in the acute setting). - She is in agreement with proceeding with transfusion today. 1 unit PRBC ordered. - Will monitor for improvement in symptoms with this and recheck Hgb in the am. - Iron dosing has been increased to TID. (2) CHF (congestive heart failure) SNOMED Code(s): 60231800 Code(s): I50.9 - HEART FAILURE, UNSPECIFIED Status: Acute Current Visit: Yes Qualifiers: Heart failure type: high output Qualified Code(s): I50.83 - High output heart failure Annotation/Comment:: - Patient has no history of CHF and Echo 04/2016 without significant abnormalities. Suspect that current fluid overload is related to high output failure in the setting of her anemia. - She will be continued on the lasix throughout today as she will get a decent fluid load with the blood transfusion. - After today, will d/c the lasix and see how she does. - If she has ongoing struggles with improvement in her hemoglobin, will need to repeat an Echo for further assessment. (3) Atrial fibrillation SNOMED Code(s): 22396908 Code(s): I48.91 - UNSPECIFIED ATRIAL FIBRILLATION Status: Chronic Current Visit: Yes Qualifiers: Atrial fibrillation type: persistent Qualified Code(s): I48.1 - Persistent atrial fibrillation Annotation/Comment:: - Rate has been up, especially with activity. This, too, is likely related to the anemia. - Digoxin had been ordered. However, since the patient is in agreement with getting a transfusion today, will start with that and see if her rates improve. - She is also on very low dose metoprolol and her blood pressure is acceptable so would start by increasing this rather than adding digoxin. - Will follow heart rates today and then go from there. 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 - Hold metformin. - Start aspart low dose correction scale instead. - QID glucoses. (5) Chronic back pain SNOMED Code(s): 993710802 Code(s): M54.9 - DORSALGIA, UNSPECIFIED; G89.29 - OTHER CHRONIC PAIN Status : Chronic Current Visit: Yes Qualifiers: Back pain location: low back pain Back pain laterality: bilateral Sciatica presence: without sciatica Qualified Code(s): M54.5 - Low back pain; G89.29 - Other chronic pain Annotation/Comment:: - Continue norco per home schedule. (6) Non-healing wound SNOMED Code(s): 609821965 Code(s): [id number] - Status: Chronic Current Visit: Yes Annotation/ Comment:: - Following with the [facility] wound clinic. - She will continue her dressing changes as per their instructions. (7) WHIT (obstructive sleep apnea) SNOMED Code(s): 58532136 Code(s): G47.33 - OBSTRUCTIVE SLEEP APNEA (ADULT) (PEDIATRIC) Status: Chronic Current Visit: Yes Annotation/Comment:: - She has been encouraged to get her CPAP machine from home so she can continue this here. - Problem List Review Problem List Initiated/Reviewed/Updated: Yes - My Orders Last 24 Hours: My Active Orders 06/24/17 09:07 RED BLOOD CELLS LP [BBK] Routine TYPE AND SCREEN [BBK] Routine Blood Transfusion Reflex Orders [OM.PC] Routine Transfuse Red Blood Cells [COMM] Routine 06/24/17 12:00 Insulin Aspart [NovoLOG] See Protocol SUBCUT TIDMEALS 06/25/17 05:11 BASIC METABOLIC PANEL,BMP [CHEM] Routine CBC WITH AUTO DIFF [HEME] Routine INR,PT,PROTHROMBIN TIME [COAG] Routine - Assessment Assessment:: 61 yo female admitted with symptomatic acute on chronic anemia. No change from admission last night - is having difficulty even moving about the hospital room secondary to her symptoms. - Plan Plan:: See details under problems above. Will transfuse today - patient did give consent after review of the risks, benefits, and alternatives. Will also continue the IV lasix. No other changes today until we see how her symptoms respond to the transfusion. Will recheck labs in the am. Patient is full code. She will remain admitted on acute status with plans to dismiss home tomorrow if symptoms improve with transfusion. No VTE prophylaxis in the setting of acute anemia.
[2017-06-24] MEDS ORDERED: Insulin Detemir 100 Units/ML 3 ML Pen SUBCUT SCH (20:00)
[2017-06-24] MEDS ORDERED: Warfarin 2 MG Tab PO SCH (20:00)
[2017-06-24] MEDS ORDERED: Zolpidem 5 MG Tab PO SCH (20:00)
[2017-06-25] MEDS: Ferrous Sulfate Liq 300 MG/5 ML Cup PO SCH ×4 (04:32→13:01)
[2017-06-25] MEDS: Zolpidem 5 MG Tab PO SCH (04:32)
[2017-06-25] MEDS: Multivitamins with Iron/Calcium/Folic Acid/Minerals Tab PO SCH (07:56)
[2017-06-25] MEDS: Citalopram 20 MG Tab PO SCH (07:56)
[2017-06-25] MEDS: Fish Oil/Omega-3 Fatty Acids 1 Gm Cap PO SCH (07:56)
[2017-06-25] MEDS: Calcium Carbonate/Vitamin D3 1250 MG-200 Unit Tab PO SCH (07:57)
[2017-06-25] MEDS: Potassium Chloride 10 MEQ Tab.ER PO SCH (07:57)
[2017-06-25] MEDS: Beta-Carotene (Vitamin A) w/Vitamin C & E plus Minerals Tab PO SCH (07:57)
[2017-06-25 07:58] LABS: CHLORIDE,CL 105 mmol/L (98-107); SODIUM,NA 140 mmol/L (136-145)
[2017-06-25] MEDS: PYRIDOXINE PO SCH (07:58)
[2017-06-25] MEDS: Metoprolol Succinate 25 MG Tab.ER PO SCH (07:58)
[2017-06-25] MEDS: Aspirin 81 MG Tab.EC PO SCH (07:58)
[2017-06-25] MEDS: [UNRECOGNIZED DRUG - OTHER] PO SCH (07:58)
[2017-06-25] MEDS: CYANOCOBALAMIN PO SCH (07:58)
[2017-06-25] MEDS: Furosemide 20 MG/2 ML VIAL IV SCH ×2 (07:59→13:00)
[2017-06-25] MEDS: Insulin Aspart 100 Units/ML 3 ML Pen SUBCUT SCH ×3 (07:59→12:59)
[2017-06-25] MEDS: Insulin Detemir 100 Units/ML 3 ML Pen SUBCUT SCH (08:02)
[2017-06-25] MEDS: Acetaminophen/HYDROcodone 325-10 MG Tab PO PRN (09:43)
[2017-06-25 10:46] VITALS: BP 106/75
[2017-06-25] MEDS ORDERED: Ferrous Sulfate Liq 300 MG/5 ML Cup PO SCH (12:30)
--- NOTE | 2017-06-25 12:30 | PCM.DCSUM1 ---
Discharge Summary - Hospital Course Brief History: Mrs. Hammond is a 61 yo female who was admitted with acute on chronic anemia with associated high output heart failure after presenting to the ER for evaluation of shortness of breath and generalized weakness. - Discharge Data Discharge Date: 06/25/17 Discharge Disposition: Home, Self-Care 01 Condition: Good - Discharge Diagnosis/Problem(s) (1) Anemia SNOMED Code(s): 463615727 ICD Code: D64.9 - ANEMIA, UNSPECIFIED Status: Acute Current Visit: Yes Problem Details: Patient has had trouble keeping up with iron intake in the setting of previous gastric bypass. Has previously been cleared with EGD and colonoscopy for any GI blood loss. Has also had negative stool testing for occult blood as recently as 6 months ago. Although her hemoglobin was stable on hospital day #1, transfusion was discussed given this was <8 and she was having symptoms. She gave consent and was transfused with 1 unit of PRBC. Her hemoglobin responded well to this and she is feeling much better today. She has also tolerated an increase in her iron dosing to TID. She is comfortable with dismissal home and close outpatient follow-up. Qualifiers: Anemia type: iron deficiency Iron deficiency anemia type: inadequate dietary iron intake Qualified Code(s): D50.8 - Other iron deficiency anemias (2) CHF (congestive heart failure) SNOMED Code(s): 07820228 ICD Code: I50.9 - HEART FAILURE, UNSPECIFIED Status: Acute Current Visit : Yes Problem Details: Diagnosis made based on weight gain, lower extremity edema, and elevated BNP. Patient has no history of CHF and Echo 04/2016 without significant abnormalities. Presumed to be high output failure in the setting of her anemia. She has been on increased lasix dosing; as above, her shortness of breath is improved. Her weight is also down and leg swelling is about the same. Will continue on BID dosing until follow-up. Her anemia is being managed as above. Qualifiers: Heart failure type: high output Qualified Code(s): I50.83 - High output heart failure (3) Atrial fibrillation SNOMED Code(s): 62665608 ICD Code: I48.91 - UNSPECIFIED ATRIAL FIBRILLATION Status: Chronic Current Visit: Yes Problem Details: Rates initially up on admission, especially with activity. This was felt to be related to the anemia. Her heart rates have improved after transfusion yesterday. No adjustments were made to her rate control medications. Qualifiers: Atrial fibrillation type: persistent Qualified Code(s): I48.1 - Persistent atrial fibrillation (4) Diabetes SNOMED Code(s): 12712872 ICD Code: E11.9 - TYPE 2 DIABETES MELLITUS WITHOUT COMPLICATIONS Status: Chronic Current Visit: Yes Problem Details: Her levemir was continued per home dosing. Her metformin was held and replaced with aspart correction scale. Glucoses have been acceptable. Qualifiers: Diabetes mellitus type: type 2 Diabetes mellitus superintendent terminal insulin use: with superintendent terminal use Diabetes mellitus complication status: without complication Qualified Code(s): E11.9 - Type 2 diabetes mellitus without complications; Z79.4 - correction (current) use of insulin (5) Chronic back pain SNOMED Code(s): 818342438 ICD Code: M54.9 - DORSALGIA, UNSPECIFIED; G89.29 - OTHER CHRONIC PAIN Status: Chronic Current Visit: Yes Problem Details: Home medications continued. Qualifiers: Back pain location: low back pain Back pain laterality: bilateral Sciatica presence: without sciatica Qualified Code(s): M54.5 - Low back pain; G89.29 - Other chronic pain (6) Non-healing wound SNOMED Code(s): 734568438 ICD Code: [id number] - Status: Chronic Current Visit: Yes Problem Details : [place] [facility] [place] Dressing changes continued as per their instructions. She has follow up with them tomorrow. (7) WHIT (obstructive sleep apnea) SNOMED Code(s): 37686643 ICD Code: G47.33 - OBSTRUCTIVE SLEEP APNEA (ADULT) (PEDIATRIC) Status: Chronic Current Visit: Yes Problem Details: She never did have her CPAP in the hospital but will resume that upon dismissal home. - Patient Summary/Data Operative Procedure(s) Performed: none Complications: none Consults: none Labs Pending at D/C: none Recommended Follow-up Testing/Procedures: BMP, CBC at hospital discharge follow-up Planned Operative Procedure(s) after DC: none Hospital Course: See details above. Her symptoms significantly improved with transfusion of 1 unit PRBC's and with diuresis. She will be discharged home on higher iron and lasix dosing with follow-up planned for later this week. - Patient Instructions Diet: Usual Diet as Tolerated - Discharge Plan Prescriptions/Med Rec: Furosemide 40 mg PO BIDDIURETIC #60 tablet Home Medications: Home Meds Acetaminophen/HYDROcodone [[place] 325-10 MG] 1 - 2 tab PO Q4H PRN 11/17/15 [ History] Aspirin [Halfprin] 81 mg PO DAILY 11/17/15 [History] Calcium Carbonate/Vitamin D3 [Calcium 600 + Vit D Tablet] 1 tab PO DAILY [History] Citalopram Hydrobromide [Citalopram HBr] 20 mg PO DAILY 11/17/15 [History] Cyanocobalamin/FA/Pyridoxine [Folbic] 1 tab PO DAILY 11/17/15 [History] Cyclobenzaprine HCl 10 mg PO TID PRN 11/17/15 [History] Denosumab [Prolia] 60 mg SUBCUT Q180D 11/17/15 [History] Fish Oil/[place]-3 Fatty Acids [Fish Oil 1,000 MG] 360 mg PO DAILY 11/17/15 [ History] Insulin Detemir [Levemir Flextouch] 60 unit SUBCUT DAILY 11/17/15 [History] Insulin Detemir [Levemir Flextouch] 61 unit SUBCUT BEDTIME 11/17/15 [History] Lutein/Min/Vit C/Vit E Acetate [Ocuvite Lutein] 1 tab PO DAILY 11/17/15 [History ] Metoprolol Succinate 25 mg PO DAILY 11/17/15 [History] Multivitamin with Minerals [Multiple Vitamin] 1 tab PO DAILY 11/17/15 [History] Potassium Chloride [Klor-Con Sprinkle] 10 meq PO DAILY 11/17/15 [History] Warfarin Sodium 5 mg PO DAILY 11/17/15 [History] Zolpidem Tartrate 5 mg PO BEDTIME 11/17/15 [History] metFORMIN [Glucophage] 1,000 mg PO BID 11/17/15 [History] Ferrous Sulfate 5 ml PO TID 06/23/17 [History] Warfarin [Coumadin] 1 mg PO DAILY 06/23/17 [History] Furosemide 40 mg PO BIDDIURETIC #60 tablet 06/25/17 [Rx] Referrals: Edie Lord MD [Primary Care Provider] - - Discharge Summary/Plan Comment DC Time >30 min.: No - General Info Date of Service: 06/25/17 Subjective Update: Patient is feeling much better today. She has been able to be active around her exam room without any shortness of breath. She notes her legs are feeling less weak as well. No chest pain or lightheadedness. She is prepared for dismissal home today. - Review of Systems General: Reports: No Symptoms HEENT: Reports: No Symptoms Pulmonary: Reports: No Symptoms Cardiovascular: Reports: No Symptoms Gastrointestinal: Reports: No Symptoms Genitourinary: Reports: No Symptoms Musculoskeletal: Reports: No Symptoms - Patient Data Vitals - Most Recent: Last Vital Signs Temp 36.8 C 06/25/17 10:00 Pulse 97 06/25/17 10:00 Resp 20 06/25/17 10:00 BP 106/75 06/25/17 10:00 Pulse Ox 97 06/25/17 10:00 Weight - Most Recent: 159.846 kg I&O - Last 24 hours: Intake & Output 06/24/17 06/25/17 06/25/17 22:59 06:59 14:59 Intake Total 240 2800 540 Output Total 1900 Balance 240 900 540 Lab Results - Last 24 hrs: Laboratory Results - last 24 hr 06/24/17 06/24/17 06/24/17 Range/Units 09:50 17:42 21:29 WBC (4.0-10.0) x10^3/uL RBC (4.00-5.50) x10^6/uL Hgb (12.0-16.0) g/dL Hct (33.0-47.0) % MCV (78.0-93.0) fL MCH (26.0-32.0) pg MCHC (32.0-36.0) g/dL RDW Coeff of Vahid (10.0-15.0) % Plt Count (130-400) x10^3/uL Neut % (Auto) (50.0-80.0) % Lymph % (Auto) (25.0-50.0) % Dyer % (Auto) (2.0-11.0) % Eos % (Auto) (0.0-4.0) % Baso % (Auto) (0.2-1.2) % PT (9.6-11.4) SEC INR (2.0-3.5) Sodium (136-145) mmol/L Potassium (3.5-5.1) mmol/L Chloride (98-107) mmol/L Carbon Dioxide (21-32) mmol/L Anion Gap (10-20) mmol/L BUN (7-18) mg/dL Creatinine (0.55-1.02) mg/dL Est Cr Clr Drug Dosing mL/min Estimated GFR (MDRD) Glucose (74-106) mg/dL POC Glucose 123 H 182 H (74-106) mg/dL Calcium (8.5-10.1) mg/dL Blood Type A POSITIVE Gel Antibody Screen Negative Crossmatch See Detail 06/25/17 06/25/17 06/25/17 Range/Units 06:30 06:30 06:30 WBC 5.1 (4.0-10.0) x10^3/uL RBC 3.73 L (4.00-5.50) x10^6/uL Hgb 8.7 L (12.0-16.0) g/dL Hct 29.9 L (33.0-47.0) % MCV 80.2 (78.0-93.0) fL MCH 23.3 L (26.0-32.0) pg MCHC 29.1 L (32.0-36.0) g/dL RDW Coeff of Vahid 18.1 H (10.0-15.0) % Plt Count 249 (130-400) x10^3/uL Neut % (Auto) 56.3 (50.0-80.0) % Lymph % (Auto) 28.8 (25.0-50.0) % Dyer % (Auto) 10.8 (2.0-11.0) % Eos % (Auto) 3.7 (0.0-4.0) % Baso % (Auto) 0.4 (0.2-1.2) % PT 22.3 H (9.6-11.4) SEC INR 2.1 (2.0-3.5) Sodium 140 (136-145) mmol/L Potassium 4.1 (3.5-5.1) mmol/L Chloride 105 (98-107) mmol/L Carbon Dioxide 29 (21-32) mmol/L Anion Gap 10.1 (10-20) mmol/L BUN 14 (7-18) mg/dL Creatinine 0.6 (0.55-1.02) mg/dL Est Cr Clr Drug Dosing 86.10 mL/min Estimated GFR (MDRD) > 60 Glucose 79 (74-106) mg/dL POC Glucose (74-106) mg/dL Calcium 8.1 L (8.5-10.1) mg/dL Blood Type Gel Antibody Screen Crossmatch 06/25/17 06/25/17 Range/Units 06:31 11:25 WBC (4.0-10.0) x10^3/uL RBC (4.00-5.50) x10^6/uL Hgb (12.0-16.0) g/dL Hct (33.0-47.0) % MCV (78.0-93.0) fL MCH (26.0-32.0) pg MCHC (32.0-36.0) g/dL RDW Coeff of Vahid (10.0-15.0) % Plt Count (130-400) x10^3/uL Neut % (Auto) (50.0-80.0) % Lymph % (Auto) (25.0-50.0) % Dyer % (Auto) (2.0-11.0) % Eos % (Auto) (0.0-4.0) % Baso % (Auto) (0.2-1.2) % PT (9.6-11.4) SEC INR (2.0-3.5) Sodium (136-145) mmol/L Potassium (3.5-5.1) mmol/L Chloride (98-107) mmol/L Carbon Dioxide (21-32) mmol/L Anion Gap (10-20) mmol/L BUN (7-18) mg/dL Creatinine (0.55-1.02) mg/dL Est Cr Clr Drug Dosing mL/min Estimated GFR (MDRD) Glucose (74-106) mg/dL POC Glucose 80 99 (74-106) mg/dL Calcium (8.5-10.1) mg/dL Blood Type Gel Antibody Screen Crossmatch Med Orders - Current: Current Medications Hydrocodone Bitart/Acetaminophen ([place] 325-10 Mg) 1 - 2 tab PO Q4H PRN PRN Reason: Pain Last Admin: 06/25/17 09:43 Dose: 2 tab Aspirin (Halfprin) 81 mg PO DAILY [facility] Last Admin: 06/25/17 07:58 Dose: 81 mg Calcium Carbonate (Calcium Carbonate/Vitamin D 1250 Mg-200 Unit) 1 tab PO DAILY [facility] Last Admin: 06/25/17 07:57 Dose: 1 tab Citalopram Hydrobromide (Celexa) 20 mg PO DAILY [facility] Last Admin: 06/25/17 07:56 Dose: 20 mg Ferrous Sulfate (Ferrous Sulfate) 5 mg PO TID [facility] Last Admin: 06/25/17 08:00 Dose: 5 mg Fish Oil (Fish Oil) 1 gm PO DAILY [facility] Last Admin: 06/25/17 07:56 Dose: 1 gm Furosemide (Lasix) 20 mg IV BIDDIURETIC [facility] Last Admin: 06/25/17 07:59 Dose: 20 mg Insulin Aspart (Novolog) 0 unit SUBCUT TIDMEALS [facility]; Protocol Last Admin: 06/25/17 07:59 Dose: Not Given Insulin Detemir (Levemir) 60 unit SUBCUT DAILY [facility] Last Admin: 06/25/17 08:02 Dose: 60 units Insulin Detemir (Levemir) 61 unit SUBCUT BEDTIME [facility] Last Admin: 06/25/17 04:33 Dose: Not Given Metoprolol Succinate (Toprol Xl) 25 mg PO DAILY [facility] Last Admin: 06/25/17 07:58 Dose: 25 mg Multivitamins/Minerals (Prosight) 1 tab PO DAILY [facility] Last Admin: 06/25/17 07:57 Dose: 1 tab Multivitamins/Minerals (Thera M Plus) 1 tab PO DAILY [facility] Last Admin: 06/25/17 07:56 Dose: 1 tab Cyanocobalamin/Fa/Pyridoxine [Folbic] (Own Supply) 1 tab PO DAILY [facility] Last Admin: 06/25/17 07:58 Dose: Not Given Potassium Chloride (Klor-Con 10) 10 meq PO DAILY [facility] Last Admin: 06/25/17 07:57 Dose: 10 meq Sodium Chloride (Saline Flush) 10 ml FLUSH ASDIRECTED PRN PRN Reason: Keep Vein Open Last Admin: 06/23/17 23:38 Dose: 10 ml Warfarin Sodium (Coumadin) 6 mg PO DAILY@1999 [facility] Last Admin: 06/25/17 04:32 Dose: Not Given Zolpidem Tartrate (Ambien) 5 mg PO BEDTIME [facility] Last Admin: 06/25/17 04:32 Dose: Not Given Discontinued Medications Digoxin (Lanoxin) 250 mcg IVPUSH STAT ONE Stop: 06/24/17 01:36 Last Admin: 06/24/17 08:10 Dose: Not Given Digoxin (Lanoxin) 250 mcg PO DAILY [facility] Metformin HCl (Glucophage) 1,000 mg PO BIDMEALS [facility] Last Admin: 06/24/17 08:13 Dose: 1,000 mg Non-Formulary Medication (Warfarin) 1 mg PO DAILY [facility] Warfarin Sodium (Coumadin) 5 mg PO DAILY [facility] Zolpidem Tartrate (Ambien) 5 mg PO BEDTIME [facility] - Exam General: Reports: Alert, Cooperative, No Acute Distress HEENT: Reports: Mucous Membr. Moist/Purdy Neck: Reports: Supple, Trachea Midline, No Thyromegaly, Lymphadenopathy Lungs: Reports: Clear to Auscultation, Normal Respiratory Effort Cardiovascular: Reports: Regular Rate, No Murmurs, Irregular Rhythm GI/Abdominal Exam: Normal Bowel Sounds, Soft, Non-Tender Extremities: Normal Inspection, Non-Tender, Pedal Edema (2+ bilaterally) Skin: Reports: Warm, Dry
== END 2017-06-25 14:00 | disposition home or self-care (01) | DRG 812 ==
LOC: VM.ED 19:32 → SUPCPDRO 19:32 → VM.MS 21:07
PROVIDERS: ADMIT Internal Medicine; ATTEND Family Medicine
PROC: 30233N1 Transfusion of Nonautologous Red Blood Cells into Peripheral Vein, Percutaneous Approach (ICD-10-PCS; principal; 2017-06-24)
DX: R06.02 Shortness of breath (principal); D50.9 Iron deficiency anemia, unspecified; I13.0 Hypertensive heart and chronic kidney disease with heart failure and stage 1 through stage 4 chronic kidney disease, or unspecified chronic kidney disease; I48.1 Persistent atrial fibrillation; I10 Essential (primary) hypertension; K90.89 Other intestinal malabsorption; Z91.19 Patient's noncompliance with other medical treatment and regimen; E66.01 Morbid (severe) obesity due to excess calories; Z91.14 Patient's other noncompliance with medication regimen; N18.9 Chronic kidney disease, unspecified; E11.9 Type 2 diabetes mellitus without complications; D63.1 Anemia in chronic kidney disease; L98.9 Disorder of the skin and subcutaneous tissue, unspecified; R53.1 Weakness; R53.83 Other fatigue; R06.00 Dyspnea, unspecified; R60.0 Localized edema; I50.83 High output heart failure; E11.22 Type 2 diabetes mellitus with diabetic chronic kidney disease; G89.4 Chronic pain syndrome; K43.9 Ventral hernia without obstruction or gangrene; R13.11 Dysphagia, oral phase; M54.2 Cervicalgia; M81.0 Age-related osteoporosis without current pathological fracture; F32.9 Major depressive disorder, single episode, unspecified; G47.00 Insomnia, unspecified; Z88.8 Allergy status to other drugs, medicaments and biological substances; Z79.01 Long term (current) use of anticoagulants; Z98.84 Bariatric surgery status; Z79.82 Long term (current) use of aspirin; Z79.4 Long term (current) use of insulin; Z79.899 Other long term (current) drug therapy; G47.33 Obstructive sleep apnea (adult) (pediatric); S31.102A Unspecified open wound of abdominal wall, epigastric region without penetration into peritoneal cavity, initial encounter; X58.XXXA Exposure to other specified factors, initial encounter
CPT/HCPCS: 36415; 36430; 71045; 80048; 80053; 80162; 82550; 82728; 82962; 83540; 83550; 83880; 84484; 85025; 85379; 85610; 86850; 86900; 86901; 86920; 86922; 93005; 99285; 99285-GF; A9270-GY; J1815-GY; J1940; J7050; P9016

== ENCOUNTER 2021-07-06 09:15 | Day surgery (SDC) | payer MEDICARE, BC ==
[~2021-07-06 09:15] MED LIST: Lactated Ringers 1,000 ML IV SCH; Sodium Chloride 0.9% 10 ML Syringe FLUSH PRN
[2021-07-06] MEDS ORDERED: fentaNYL 100 MCG/2 ML SDV ONE (10:09)
[2021-07-06] MEDS ORDERED: Propofol 200 MG/20 ML SDV ONE ×2 (10:09→12:00)
[2021-07-06 12:43] VITALS: BP 113/56; PULSE 88
[2021-07-07] MEDS ORDERED: Lactated Ringers 1,000 ML IV SCH (07:00)
== END 2021-07-06 13:30 | disposition home or self-care (01) ==
LOC: VM.SDS 09:15
PROVIDERS: ATTEND Family Medicine
DX: Z12.11 Encounter for screening for malignant neoplasm of colon (principal); K63.89 Other specified diseases of intestine; I48.20 Chronic atrial fibrillation, unspecified; K64.9 Unspecified hemorrhoids; G47.33 Obstructive sleep apnea (adult) (pediatric); F32.A Depression, unspecified; M81.0 Age-related osteoporosis without current pathological fracture; E11.22 Type 2 diabetes mellitus with diabetic chronic kidney disease; N18.30 Chronic kidney disease, stage 3 unspecified; F51.01 Primary insomnia; G89.29 Other chronic pain; M54.50 Low back pain, unspecified; I50.42 Chronic combined systolic (congestive) and diastolic (congestive) heart failure; E66.01 Morbid (severe) obesity due to excess calories; I13.0 Hypertensive heart and chronic kidney disease with heart failure and stage 1 through stage 4 chronic kidney disease, or unspecified chronic kidney disease; E11.65 Type 2 diabetes mellitus with hyperglycemia; Z90.49 Acquired absence of other specified parts of digestive tract; Z68.43 Body mass index [BMI] 50.0-59.9, adult; Z86.010 Personal history of colon polyps; Z79.01 Long term (current) use of anticoagulants; Z98.890 Other specified postprocedural states; Z79.4 Long term (current) use of insulin; Z79.899 Other long term (current) drug therapy; Z88.8 Allergy status to other drugs, medicaments and biological substances
CPT/HCPCS: 00812; 36415; 82947; 85610; G0105; J2704; J3010; J7120